=== PATIENT | female | born 1985 | race Two or more races ===

== ENCOUNTER 2018-06-06 11:59 | Emergency (ER) | payer SELFPAY ==
[~2018-06-06] VITALS: Ht 170.2 cm; Wt 58.1 kg
[2018-06-06 12:15] VITALS: BP 120/75
--- NOTE | 2018-06-06 12:37 | Emergency Room Report ---
History of Present Illness General Chief Complaint: General Complaint Source: Patient Present Illness HPI 33-year-old female patient presents to ER complaining of right-sided flank pain and burning with urination. Reports lengthens been present intermittently for the past few months, states initially thought was muscular in nature. Reports burning with urination for the past few days. Reports frequency and urgency. Reports nausea. Reports last menstrual period earlier this month, states her. Denies vaginal discharge, hematuria. Denies foul smelling odor. Reports sexual activity with one partner, with boyfriend currently in the ER with patient. also complaining of left breast pain. States been present for the past year. Reports small bump present, increases in size with menstrual period. Reports hx of breast implants. Denies erythema or nipple discharge. Reports had ultrasound performed which was negative for cancer, however radiologist stated abnormal results were seen, patient states has follow-up appointment on June 13 with internal medicine to get referral to specialist. Requesting referral and pain management. Reports controls pain with ibuprofen. Denies fever, chest pain, shortness of breath, abdominal pain, vomiting, diarrhea. Denies injury or trauma. Allergies: Coded Allergies: POVIDONE-IODINE (Verified Allergy, Unknown, 06/06/18) SOAP (Verified Allergy, Unknown, 06/06/18) Patient History Past Medical History: see triage record Last Menstrual Period: 05/27/18 Reviewed Nursing Documentation: PMH: Agreed; PSxH: Agreed Nursing Documentation-PMH Past Medical History: No Stated History Review of Systems All Other Systems: negative except mentioned in HPI Physical Exam Vital Signs Date Time Temp Pulse Resp B/P (MAP) Pulse Ox O2 Delivery O2 Flow Rate FiO2 06/06/18 12:05 97.9 72 18 120/75 99 Room Air Sp02 EP Interpretation: reviewed, normal General Appearance: well appearing, no apparent distress, alert, GCS 15, non- toxic Head: normocephalic, atraumatic Eyes: bilateral eye normal inspection, bilateral eye PERRL ENT: hearing grossly normal, normal pharynx, no angioedema, normal voice, uvula midline, moist mucus membranes Neck: full range of motion Respiratory: lungs clear, normal breath sounds, no rhonchi, no respiratory distress, no accessory muscle use, no wheezing, speaking full sentences, other - breast exam deffered; TTP over right posterior lower rib, no defomrity, no flail chest Cardiovascular #1: regular rate, rhythm, no edema Cardiovascular #2: 2+ radial (R), 2+ radial (L) Genitourinary: no CVA tenderness Musculoskeletal: back normal, digits/nails normal, gait/station normal, normal range of motion, non-tender Neurologic: alert, oriented x3, responsive, motor strength/tone normal, SLR negative, sensory intact, cerebellar normal, normal gait, speech normal Psychiatric: mood/affect normal Skin: no rash Lymphatic: no adenopathy Medical Decision Making PA Attestation Dr. Joel is my supervising Physician whom patient management has been discussed with. Diagnostic Impression: Primary Impression: Dysuria Additional Impressions: Rib pain Breast pain ER Course Pt presents to ED c/o urinary symptoms. DDX considered but are not limited to cystitis, pyelonephritis, STI, vaginitis, . No abdominal tenderness to palpation, negative anchor operator, negative Patel, negative Rovsing, low suspicion for cholecystitis or appendicitis, does not require imaging or labs at this time. VITAL SIGNS are WNL, patient is afebrile. ER COURSE breast exam deferred. Provide patient with contact information for breast specialist. Take Tylenol for pain symptoms. F/u at scheduled appointment. Apply cool compresses for swelling symptoms. ER precautions given. TTP over left posterior lower rib, reproducible, no chest pain, no SOB, no acute injury or trauma, present for several months, does not require imaging at this time. Likely musculoskeletal. No absent breath sounds, no tracheal deviation, low suspicion for pneumothorax, likely contusion. UA results show negative, indicate UTI, will treat with abx. Due to patient presentation and UA results, do not believe patient requires further imaging and labs at this time, OK for outpatient followup. Discuss further treatment and referral at scheduled appointment. Urine negative Discuss results with patient. Will provide Pyridium for dysuria symptoms. SE turns urine orange. Will provide patient with pain medication for muscular pain. Advised on rest, ice, heat. If concern for STI, followup with STI clinic for testing and treatment. Denies STI concern. Patient is resting comfortably in chair, nontoxic appearing, in no acute distress. Patient states they feel better and is ready to go home. DISCHARGE -Rx provided for Lidocaine patches. -Rx provided for Robaxin -Rx provided for Phenazopyridine for pain. Patient is stable for discharge. Patient resting comfortably, in no acute distress, nontoxic appearing, talking without difficulty. Will provide with patient care instructions and any necessary prescriptions. Patient understands and agrees to treatment plan. Patient encouraged to drink plenty of fluids. Patient to take medication as instructed. Care plan and follow-up instructions provided. Patient questions asked and answered. Reports understanding and agreement to treatment plan. Patient instructed to follow-up with primary care provider in 3 - 5 days. ER precautions given. Patient instructed to return to ER immediately for any new or worsening of symptoms. Including but not limited to fever, abdominal pain , intractable vomiting. - Please note that this Emergency Department Report was dictated using [employer] healthcare systems technology software, occasionally this can lead to erroneous entry secondary to interpretation by the dictation equipment. Labs Test 06/06/18 12:12 Urine Color Pale yellow Urine Appearance Clear Urine pH 7 (4.5-8.0) Urine Specific [place] 1.010 (1.005-1.035) Urine Protein Negative (NEGATIVE) Urine Glucose (UA) Negative (NEGATIVE) Urine Ketones Negative (NEGATIVE) Urine Blood Negative (NEGATIVE) Urine Nitrite Negative (NEGATIVE) Urine Bilirubin Negative (NEGATIVE) Urine Urobilinogen Normal MG/DL (0.0-1.0) Urine Leukocyte Esterase Negative (NEGATIVE) Urine HCG, Qualitative Negative (NEGATIVE) Last Vital Signs Date Time Temp Pulse Resp B/P (MAP) Pulse Ox O2 Delivery O2 Flow Rate FiO2 06/06/18 12:05 97.9 72 18 120/75 99 Room Air Status: improved Disposition: HOME, SELF-CARE Condition: Stable Scripts Phenazopyridine Hcl* (PYRIDIUM*) 100 Mg Tablet 100 MG ORAL THREE TIMES A DAY for 20 Days, TAB Prov: Ian Zapata P.A. 06/06/18 Methocarbamol* (ROBAXIN*) 500 Mg Tablet 500 MG PO TID, #21 TAB 0 Refills Prov: Ian Zapata.A. 06/06/18 Lidocaine (Lidocaine) 1 Each Adh..patch 5 % TP DAILY for 7 Days, #7 PATCH Prov: Ian Zapata.A. 06/06/18 Patient Instructions: Breast Cyst, Dysuria, Flank Pain, [id number], Rib Contusion Additional Instructions: Patient instructed to follow up with primary care provider 3-5 and discuss further referral and imaging at that time for back/flank/rib pain. Drink plenty of fluids. Followup with breast specialist. Take Tylenol for pain symptoms. Followup with entry specialists. SE of Pyridium, may turn urine orange. Patient instructed on rest, ice and heat. Do not take muscle relaxant prior to drinking, driving, or operating heavy machinery. Take medications as directed. Patient questions asked and answered. ER precautions given, patient instructed to return to ER immediately for any new or worsening of symptoms. [facility] [address] [facility], [id number] [email or web address] Ian Zapata Jun 06, 2018 12:37
[2018-06-06] MEDS ORDERED: Acetaminophen 500mg (ES) tab ORAL ONE (12:45)
[2018-06-06 12:56] LABS: APPEARANCE,URINE CLEAR; BILIRUBIN, URINE NEGATIVE (NEGATIVE); COLOR,URINE PALE YELLOW; GLUCOSE, URINE (UA) NEGATIVE (NEGATIVE); KETONES,URINE NEGATIVE (NEGATIVE); LEUKOCYTE ESTERASE ,URINE NEGATIVE (NEGATIVE); NITRITE,URINE NEGATIVE (NEGATIVE); PH,URINE 7 (4.5-8.0); PROTEIN,URINE NEGATIVE (NEGATIVE); UROBILINOGEN,URINE NORMAL MG/DL (0.0-1.0)
[2018-06-06] MEDS ORDERED: LIDOCAINE700 M1 TP (13:20)
[2018-06-06] MEDS ORDERED: PHENAZOPYRIDIN100 MG ORAL (13:20)
[2018-06-06] MEDS ORDERED: ROBAXIN500 MG PO (13:20)
[2018-06-06 13:28] VITALS: BP 118/71
== END 2018-06-06 14:00 | disposition home or self-care (01) ==
LOC: EMR 13:42
DX: R30.0 Dysuria (principal); R07.81 Pleurodynia; N64.4 Mastodynia; R11.0 Nausea; Z88.8 Allergy status to other drugs, medicaments and biological substances
CPT/HCPCS: 81003; 81025; 99283